=== PATIENT | male | born 1985 | race Two or more races ===

== ENCOUNTER 2024-07-21 14:35 | Inpatient (IN) | payer SELFPAY ==
[~2024-07-21] VITALS: Ht 175.3 cm; Wt 141.9 kg
--- NOTE | 2024-07-21 14:52 | ED.PDOC ---
History of Present Illness HPI Comments HPI: Poor Historian. 38-year-old male presents with a chief complaint of malaise, chills, and headache and dysuria. Patient was referred to the ER by Nya Germain to rule out Sepsis. Patient has a headache that is localized to his posterior region, non-radiating, and is worse when lying down. Patient mentions that on Friday and Friday he had a fever, but is afebrile upon arrival at 98.7F orally. 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 PMHx: Meningitis, Right Hearing Deficits, left-sided deficit PSHx: None Allergies: None Initial Vital Signs: BP: 143/84 HR: 98 Temp: 98.7F SpO2: 90% RR: 20 REVIEW OF SYSTEMS: CONSTITUTIONAL: Denies acute: fever, diaphoresis, HEAD: Denies acute: photophobia Eyes: Denies acute: Double vision, vision loss, eye pain, eye discharge. EARS: Denies acute: tinnitus, hearing loss, ear discharge, ear pain, THROAT: Denies acute: sore throat, swelling, difficulty swallowing , pain with swallowing, change in voice. NECK: Denies acute: neck pain, neck swelling, stiff neck. HEART: Denies acute : chest pain, palpitations, LUNGS: Denies acute: SOB, wheezing, cough, hemoptysis ABDOMEN: Denies acute: abdominal pain, Nausea, Vomiting, diarrhea, melena , hematemesis, hematochezia SKIN: Denies acute: rash, redness, lesions, itchiness. EXTREMITIES: Denies acute: calf pain, numbness, tingling, weakness, denies pain in extremity. Denies acute: Low back pain. Neuro: Denies acute: focal neurological deficit, motor or sensory focal neurological deficit, tremors, seizure like activity, confusion, dizziness, change in mental status, loss of bowel or bladder function, cauda equina like symptoms. : Denies acute: hematuria, flank pain, increase in urinary frequency. PSYCH: Denies acute: hallucination, suicidal ideation, homicidal ideation. PHYSICAL EXAM: General: no acute distress, awake and alert. Head: normocephalic, atraumatic. Neck: supple, trachea is midline, no swelling. Throat: Normal phonation. Eyes:, no erythema, no purulent discharge, no proptosis, no icterus. Heart: regular rate, regular rhythm, no significant murmur appreciated. Lungs: no apparent respiratory distress, Able to speak in full sentences. No wheezing, no rhonchi, no crackles. No stridors Clear to auscultation bilaterally. Abdomen: non tender to palpation, non distended, soft, no guarding, no rebound, + bowel sounds. Obese Neuro: Awake, Alert, oriented to name, self, situation, follows commands GCS=15. Speech is normal. Skin: no petechia, no purpura, no cyanosis, non-pale, not jaundice. Lower extremities: --no - Pitting edema no deformity, no focal swelling, no calf TTP. Makes eye contact. moves all four extremities. Face: no apparent facial droop. Ambulating in the ED independently. With a cane No nuchal rigidity, Kernig's sign, Brudzinski's sign, no meningeal signs. Time Seen by MD: 14:44 Reviewed Notes: Medications, Allergies Allergies: Coded Allergies: Diphenhydramine (Verified Allergy, Unknown, 07/21/24) Information Source: Patient Mode of Arrival: Ambulatory Severity: Moderate Timing: Days Duration: Since onset Prehospital treatment: None Past Medical History Past Medical History (Other): Meningitis Surgical History: Denies all surgeries Family History Family History: Reviewed,noncontributory to illness Social History Smoker: Non-Smoker Alcohol: Denies ETOH Use Drugs: Denies Drug Use Lives In: Home Was a procedure done? Was a procedure done?: No Differential Dx Considerations may include: Includes but not limited to thyroid disease, encephalopathy, electrolyte abnormality, sepsis, infection, intracranial pathology, drug adverse effects, arrhythmia, kidney insufficiency, ACS, CVA, malignancy, anemia X-Ray, Labs, Meds, VS Vital Signs Date Time Temp Pulse Resp B/P (MAP) Pulse Ox O2 Delivery O2 Flow Rate FiO2 07/21/24 20:00 98.1 63 16 122/67 (85) 98 98.1 07/21/24 16:15 99 07/21/24 15:40 99.0 98 18 142/81 (101) 95 99.0 07/21/24 15:40 98 18 95 Room Air* 0 21 07/21/24 14:45 98.7 90 28 143/84 (103) 98 Lab Test 11/6/24 20:27 07/21/24 19:54 07/21/24 15:43 07/21/24 15:02 Range/Units Urine Color Light-orange Yellow Urine Clarity Ex.turbid Clear Urine pH 8.0 5.0-9.0 Urine Specific [place] 1.027 1.001-1.035 Urine Protein 1+ H Negative Urine Ketones Negative Negative Urine Blood Trace H Negative /uL Urine Nitrite 2+ H Negative Urine Bilirubin Negative Negative Urine Urobilinogen 2 H Negative mg/dL Urine Leukocyte Esterase 3+ Negative /uL Urine RBC 22 0 - 3 /hpf Urine WBC 426 0 - 3 /hpf Urine WBC Clumps Present None Seen /hpf Urine Squamous Epithelial Cells None seen <5 /hpf Urine Triple Phosphate Crystals Few None Seen /hpf Urine Bacteria None seen None Seen /hpf Urine Mucus Few None Seen Urine Glucose Normal Normal mg/dL Urine Opiates Screen Neg NEGATIVE Urine Fentanyl Screen Neg NEGATIVE Urine Barbiturates Screen Neg NEGATIVE Urine Phencyclidine Screen Neg NEGATIVE Urine Amphetamines Screen Neg NEGATIVE Urine Benzodiazepines Screen Neg NEGATIVE Urine Cocaine Screen Neg NEGATIVE Urine Cannabinoids Screen Neg NEGATIVE Troponin I High Sensitivity 224 *H 243 *H </=54 ng/L Influenza Type A Antigen Negative Negative Influenza Type B Antigen Negative Negative SARS-CoV-2 Antigen (Rapid) Negative NEGATIVE White Blood Count 11.4 H 4.4-10.8 10^3/uL Red Blood Count 5.51 4.5-5.90 10^6/uL Hemoglobin 14.9 13.5-17.5 g/dL Hematocrit 46.0 41.0-53.0 % Mean Corpuscular Volume 83.4 80.0-100.0 fL Mean Corpuscular Hemoglobin 27.0 L 28.0-32.0 pg Mean Corpuscular Hemoglobin Concent 32.4 32.0-36.0 g/dL Red Cell Distribution Width 15.6 H 11.8-14.3 % Platelet Count 274 140-450 10^3/uL Mean Platelet Volume 9.2 6.9-10.8 fL Neutrophils (%) (Auto) 57.1 37.0-80.0 % Lymphocytes (%) (Auto) 24.5 10.0-50.0 % Monocytes (%) (Auto) 15.3 H 0.0-12.0 % Eosinophils (%) (Auto) 2.4 0.0-7.0 % Basophils (%) (Auto) 0.7 0.0-2.0 % Neutrophils # (Auto) 6.5 1.6-8.6 10 ^3/uL Lymphocytes # (Auto) 2.8 0.4-5.4 10 ^3/uL Monocytes # (Auto) 1.7 H 0-1.3 10 ^3/uL Eosinophils # (Auto) 0.3 0-0.8 10 ^3/uL Basophils # (Auto) 0.1 0-0.2 10 ^3/uL Nucleated Red Blood Cells 0.1 % Sodium Level 137 136-145 mmol/L Potassium Level 3.9 3.5-5.1 mmol/L Chloride Level 100 98-107 mmol/L Carbon Dioxide Level 33 H 20-31 mmol/L Anion Gap 4 L 5-15 Blood Urea Nitrogen 11 9-23 mg/dL Creatinine 0.73 0.700-1.30 mg/dL Glomerular Filtration Rate Calc 118 >90 mL/min BUN/Creatinine Ratio 15.1 10.0-20.0 Serum Glucose 115 H 74-106 mg/dL Lactic Acid Level 1.5 0.4-2.0 mmol/L Calcium Level 9.4 8.7-10.4 mg/dL Magnesium Level 2.6 1.6-2.6 mg/dL Total Bilirubin 0.3 0.2-1.0 mg/dL Aspartate Amino Transferase (AST) 79 H 13-40 U/L Alanine Aminotransferase (ALT) 75 H 7-40 U/L Alkaline Phosphatase 109 46-116 U/L Creatine Kinase 1045 H 46-171 U/L C-Reactive Protein High Sensitivity 10.02 H <1.0 mg/dL Total Protein 8.4 H 5.7-8.2 g/dL Albumin 4.1 3.2-4.8 g/dL Current Medications Medications (Trade) Dose Ordered Sig/Mainor Route Start Time Stop Time Status Last Admin Sodium Chloride 1,000 ml @ 1,000 mls/hr Q1H ONCE IV 07/21/24 15:00 07/21/24 15:59 DC 07/21/24 15:49 Ceftriaxone Sodium 50 ml @ 100 mls/hr ONCE ONCE IV 07/21/24 15:00 07/21/24 15:29 DC 07/21/24 15:49 Sodium Chloride 1,000 ml @ 1,000 mls/hr Q1H ONCE IV 07/21/24 16:00 07/21/24 16:59 DC 07/21/24 17:41 Aspirin 325 mg ONCE ONCE PO 07/21/24 19:30 07/21/24 20:26 DC 07/21/24 20:40 [place] [address] Ph: [phone] DIAGNOSTIC IMAGING Diagnostic Imaging Report : [id number] Signed PATIENT: ELIU BERRIOS ACCT: [id number] UNIT: [id number] : 1985 LOC: ER ROOM / BED: / AGE / SEX: 38 / M ADM STATUS: REG ER SERVICE 1503 ORDERING PHYSICIAN: SHAWN WIN DO PROCEDURE(s): CXRP - CHEST PORTABLE REASON: malaise chills ARAUJO ORDER NUMBER(s): [id number], ACCESSION NUMBER(s): [id number] XY CHEST PORTABLE, HISTORY: malaise chills ARAUJO COMPARISON: None None TECHNICAL DATA: 1 view of the chest was obtained. FINDINGS: Lines and tubes: None Cardiomediastinal silhouette: normal Pulmonary vasculature: normal Lung expansion: normal Lung airspace: normal Lung interstitium: normal Pleura: normal Pneumothorax: no Bones: Unremarkable Other: no IMPRESSION: No acute intrathoracic abnormality. ATED BY: EDGARDO FRAUSTO MD DICTATED DATE/TIME: 07/21/241526 SIGNED BY: EDGARDO FRAUSTO MD SIGNED DATE/TIME: 07/21/24 152 Time of 1ST Reevaluation: 15:14 Reevaluation 1ST: Unchanged Time of 2ND Reevaluation: 21:11 Reevaluation 2ND: Improved Patient Education/Counseling: Diagnosis, Treatment Family Education/Counseling: Diagnosis, Treatment Comments Patient presented with the above HPI.---fever/malaise/dysuria---workup was initiated. patient was found with the above mentioned diagnosis. Patient was given: Fluids, Rocephin, aspirin, Patient ED course and VS have been stabilized. Patient has been reassessed in the ED and remained in a stable condition. Pertinent incidental findings were discussed with the patient and/or family. Patient/family voices understanding and is agreeable with plan. Patient has been observed in the ED adequate length of time to insure improvement/stability. patient was admitted to the medicine team for further evaluation and treatment of their presentation. All the reports of any imaging studies that were ordered by myself were reviewed by myself. Departure 1 Departure Time of Disposition: 15:58 Impression: Primary Impression: Rhabdomyolysis Additional Impressions: Dysuria Elevated troponin UTI (urinary tract infection) Disposition: ADMITTED INPATIENT Admit to: Tele Condition: Guarded Discharged With: Self Critical Care Note Critical Care Time?: Yes (45 min-critical care time only) I personally scribed for SHAWN WIN DO ([email or web address]) on 07/21/24 at 14:52. Electronically submitted by Marty Chavez ([email or web address]). I personally scribed for SHAWN WIN DO ([email or web address]) on 07/21/24 at 15:21. Electronically submitted by Marty Chavez ([email or web address]). I personally scribed for SHAWN WIN DO ([email or web address]) on 07/21/24 at 18:00. Electronically submitted by Marty Chavez ([email or web address]). I personally scribed for SHAWN WIN DO ([email or web address]) on 07/21/24 at 20:32. Electronically submitted by Marty Chavez ([email or web address]). SHAWN WIN DO Jul 21, 2024 14:52
[2024-07-21 15:27] LABS: Basophils # (auto) 0.1 10 ^3/uL (0-0.2); Basophils % (auto) 0.7 % (0.0-2.0); Eosinophils # (auto) 0.3 10 ^3/uL (0-0.8); Eosinophils % (auto) 2.4 % (0.0-7.0); Hemoglobin 14.9 g/dL (13.5-17.5); Lymphocytes # (auto) 2.8 10 ^3/uL (0.4-5.4); Lymphocytes % (auto) 24.5 % (10.0-50.0); Mean Corpuscular Hgb Conc. 32.4 g/dL (32.0-36.0); Mean Corpuscular Volume 83.4 fL (80.0-100.0); Monocytes # (auto) 1.7 10 ^3/uL (0-1.3); Monocytes % (auto) 15.3 % (0.0-12.0); Neutrophils # (auto) 6.5 10 ^3/uL (1.6-8.6); Neutrophils % (auto) 57.1 % (37.0-80.0); Nucleated Red Blood Cells % 0.1 %; Platelet Count (auto) 274 10^3/uL (140-450); Red Blood Cells 5.51 10^6/uL (4.5-5.90); Red Cell Distribution Width 15.6 % (11.8-14.3); White Blood Cell 11.4 10^3/uL (4.4-10.8)
--- NOTE | 2024-07-21 15:30 | DVH ---
XY CHEST PORTABLE, HISTORY: malaise chills ARAUJO COMPARISON: None None TECHNICAL DATA: 1 view of the chest was obtained. FINDINGS: Lines and tubes: None Cardiomediastinal silhouette: normal Pulmonary vasculature: normal Lung expansion: normal Lung airspace: normal Lung interstitium: normal Pleura: normal Pneumothorax: no Bones: Unremarkable Other: no IMPRESSION: No acute intrathoracic abnormality.
[2024-07-21 15:40] VITALS: PULSE 98; RESP 18; O2SAT 95
[2024-07-21] MEDS: SODIUM CHLORIDE 0.9% 1,000 ML IV ONE ×2 (15:49→17:41)
[2024-07-21] MEDS: cefTRIAXone 1GM/50ML D5W 50 ML IV ONE (15:49)
[2024-07-21 15:53] LABS: Alanine Aminotransferase 75 U/L (7-40); Albumin 4.1 g/dL (3.2-4.8); Alkaline Phosphatase 109 U/L (46-116); Anion Gap 4 (5-15); Aspartate Aminotransferase 79 U/L (13-40); BUN/Creatinine Ratio 15.1 (10.0-20.0); Bilirubin, Total 0.3 mg/dL (0.2-1.0); Blood Urea Nitrogen 11 mg/dL (9-23); Calcium 9.4 mg/dL (8.7-10.4); Carbon Dioxide 33 mmol/L (20-31); Chloride 100 mmol/L (98-107); Creatine Kinase IFCC 1045 U/L (46-171); Glucose 115 mg/dL (74-106); Magnesium 2.6 mg/dL (1.6-2.6); Potassium 3.9 mmol/L (3.5-5.1); Sodium 137 mmol/L (136-145); Total Protein 8.4 g/dL (5.7-8.2)
[2024-07-21 16:02] LABS: CRP High Sensitivity 10.02 mg/dL (<1.0)
[2024-07-21 16:41] LABS: COVID19 ANTIGEN SOFIA FIA NEGATIVE (NEGATIVE); Rapid Influenza A Negative (Negative); Rapid Influenza B Negative (Negative)
[2024-07-21 20:29] LABS: Urine Bacteria None Seen /hpf (None Seen)
[2024-07-21] MEDS: ASPirin 325 MG TAB PO ONE (20:40)
[2024-07-21 20:54] LABS: Amphetamine Screen, Urine Neg (NEGATIVE); Barbiturate Scree,Urine Neg (NEGATIVE); Benzodiazephine Screen, Urine Neg (NEGATIVE); Cannabinoid Screen, Urine Neg (NEGATIVE); Cocaine Screen, Urine Neg (NEGATIVE); Opiate Scree,Urine Neg (NEGATIVE); Phencyclidine Screen, Urine Neg (NEGATIVE); Urine Blood TRACE /uL (Negative); Urine Clarity Ex.Turbid (Clear); Urine Color Light-Orange (Yellow); Urine Mucus FEW (None Seen); Urine Protein, UAD 1+ (Negative); Urine Specific Gravity 1.027 (1.001-1.035); Urine Urobilinogen 2 mg/dL (Negative); Urine WBC 426 /hpf (0 - 3); Urine WBC Clumps PRESENT /hpf (None Seen)
[2024-07-21 21:27] VITALS: PULSE 92; RESP 16; O2SAT 96
--- NOTE | 2024-07-21 21:54 | DVHHPRES ---
History of Present Illness Resident Creating Document: MARIANNE OLIVARES RESIDENT History of Present Illness This is a 38 years old male with past medical history of meningitis presented to the ED with chief complaint of malaise, chills, fever, neck pain and dysuria since Friday prior to this admission. Patient the patient is complaining of neck pain that is located to the posterior region, nonradiating and is worse when lying down. The patient mentioned that he had fever on Friday and Friday and the highest temperature was 100 associated with chills and high colored urine. He also mentioned he had history of meningitis in 2011 with residual right hearing deficit and left-sided weakness. The patient denies any history of working outside in hot weather, any vigorous exercise or any strenuous activity. The patient denies chest pain, shortness of breath, dizziness, diaphoresis, abdominal pain, nausea, vomiting or any change in bowel and bladder habit. Past Medical History Meningitis, Prediabetes Past Surgical History None. Family History Type 2 diabetes mellitus Smoke: No ALCOHOL: none Drugs: None Lives: with Family Review of Systems Constitutional: Yes: Fever, Chills, Sweats Eyes: No: Pain, Vision change, Conjunctivae inflammation, Eyelid inflammation, Other, Redness ENT: No: Ear pain, Ear discharge, Nose pain, Nose discharge, Nose congestion, Mouth pain, Mouth swelling, Throat pain, Throat swelling, Other Cardiovascular: No: Chest Pain, Palpitations, Orthopnea, Paroxysmal Noc. Dyspnea, Edema, Lt Headedness, Other Gastrointestinal: No: Nausea, Vomiting, Abdominal Pain, Diarrhea, Constipation, Melena, Hematochezia, Other Genitourinary: Dysuria; No Frequency, No Incontinence, No Hematuria, No Retention, No Other Musculoskeletal: neck pain; No: other, shoulder pain, arm pain, back pain, hand pain, leg pain, foot pain Skin: No: Rash, Lesions, Jaundice, Bruising, Other Neurological: No: Weakness, Numbness, Incoordination, Change in speech, Confusion, Seizures, Other Allergies: Coded Allergies: Diphenhydramine (Verified Allergy, Unknown, 07/21/24) Medications Current Medications Medications Dose Ordered Sig/Mainor Route Start Time Stop Time Status Last Admin Dose Admin Sodium Chloride 10 ml Q8HR IV 07/21/24 22:00 UNV Sodium Chloride 1,000 ml @ 100 mls/hr Q10H IV 07/21/24 22:00 UNV Acetaminophen 325 mg Q4HP PRN PO 07/21/24 22:00 UNV Acetaminophen/ Hydrocodone Bitart 1 tab Q4HP PRN PO 07/21/24 22:00 UNV Ondansetron HCl 4 mg Q4HP PRN IV 07/21/24 22:00 UNV Nitroglycerin 0.4 mg Q5MINP PRN SL 07/21/24 22:00 UNV Morphine Sulfate 2 mg Q30M PRN IV 07/21/24 22:00 UNV Exam Vital Signs Vital Signs Date Time Temp Pulse Resp B/P (MAP) Pulse Ox O2 Delivery O2 Flow Rate FiO2 07/21/24 21:27 92 16 96 Room Air* 0 21 07/21/24 20:00 98.1 122/67 (85) 98.1 Exam Physical examination: General Appearance: Alert, Oriented X3, Cooperative, No acute distress HEENT: Atraumatic, PERRLA, EOMI, Mucous membrane moist/pink Respiratory: Clear to auscultation, Normal air movement Cardiovascular: Regular rate, Normal S1, Normal S2, No murmurs, no chest wall tenderness Abdominal: Normal bowel sounds, Soft, No tenderness, No hepatospenomegaly, No masses Extremities: No clubbing, No cyanosis, No edema, Normal pulses, No tenderness/swelling Skin: No rashes, No breakdown, No significant lesion Neuro: Normal gait, Normal speech, Strength at 5/5 X4 ext, Normal tone, Sensation intact, grossly intact cranial nerves. Psych/Mental Status: Mental status NL, Mood NL Labs/Xrays Labs Test 07/21/24 21:12 07/21/24 20:27 07/21/24 15:43 07/21/24 15:02 Range/Units Urine Color Light-orange Yellow Urine Clarity Ex.turbid Clear Urine pH 8.0 5.0-9.0 Urine Specific [place] 1.027 1.001-1.035 Urine Protein 1+ H Negative Urine Ketones Negative Negative Urine Blood Trace H Negative /uL Urine Nitrite 2+ H Negative Urine Bilirubin Negative Negative Urine Urobilinogen 2 H Negative mg/dL Urine Leukocyte Esterase 3+ Negative /uL Urine RBC 22 0 - 3 /hpf Urine WBC 426 0 - 3 /hpf Urine WBC Clumps Present None Seen /hpf Urine Squamous Epithelial Cells None seen <5 /hpf Urine Triple Phosphate Crystals Few None Seen /hpf Urine Bacteria None seen None Seen /hpf Urine Mucus Few None Seen Urine Glucose Normal Normal mg/dL Urine Opiates Screen Neg NEGATIVE Urine Fentanyl Screen Neg NEGATIVE Urine Barbiturates Screen Neg NEGATIVE Urine Phencyclidine Screen Neg NEGATIVE Urine Amphetamines Screen Neg NEGATIVE Urine Benzodiazepines Screen Neg NEGATIVE Urine Cocaine Screen Neg NEGATIVE Urine Cannabinoids Screen Neg NEGATIVE Influenza Type A Antigen Negative Negative Influenza Type B Antigen Negative Negative SARS-CoV-2 Antigen (Rapid) Negative NEGATIVE White Blood Count 11.4 H 4.4-10.8 10^3/uL Red Blood Count 5.51 4.5-5.90 10^6/uL Hemoglobin 14.9 13.5-17.5 g/dL Hematocrit 46.0 41.0-53.0 % Mean Corpuscular Volume 83.4 80.0-100.0 fL Mean Corpuscular Hemoglobin 27.0 L 28.0-32.0 pg Mean Corpuscular Hemoglobin Concent 32.4 32.0-36.0 g/dL Red Cell Distribution Width 15.6 H 11.8-14.3 % Platelet Count 274 140-450 10^3/uL Mean Platelet Volume 9.2 6.9-10.8 fL Neutrophils (%) (Auto) 57.1 37.0-80.0 % Lymphocytes (%) (Auto) 24.5 10.0-50.0 % Monocytes (%) (Auto) 15.3 H 0.0-12.0 % Eosinophils (%) (Auto) 2.4 0.0-7.0 % Basophils (%) (Auto) 0.7 0.0-2.0 % Neutrophils # (Auto) 6.5 1.6-8.6 10 ^3/uL Lymphocytes # (Auto) 2.8 0.4-5.4 10 ^3/uL Monocytes # (Auto) 1.7 H 0-1.3 10 ^3/uL Eosinophils # (Auto) 0.3 0-0.8 10 ^3/uL Basophils # (Auto) 0.1 0-0.2 10 ^3/uL Nucleated Red Blood Cells 0.1 % Sodium Level 137 136-145 mmol/L Potassium Level 3.9 3.5-5.1 mmol/L Chloride Level 100 98-107 mmol/L Carbon Dioxide Level 33 H 20-31 mmol/L Anion Gap 4 L 5-15 Blood Urea Nitrogen 11 9-23 mg/dL Creatinine 0.73 0.700-1.30 mg/dL Glomerular Filtration Rate Calc 118 >90 mL/min BUN/Creatinine Ratio 15.1 10.0-20.0 Serum Glucose 115 H 74-106 mg/dL Lactic Acid Level 1.5 0.4-2.0 mmol/L Calcium Level 9.4 8.7-10.4 mg/dL Magnesium Level 2.6 1.6-2.6 mg/dL Total Bilirubin 0.3 0.2-1.0 mg/dL Aspartate Amino Transferase (AST) 79 H 13-40 U/L Alanine Aminotransferase (ALT) 75 H 7-40 U/L Alkaline Phosphatase 109 46-116 U/L Creatine Kinase 1045 H 46-171 U/L C-Reactive Protein High Sensitivity 10.02 H <1.0 mg/dL Total Protein 8.4 H 5.7-8.2 g/dL Albumin 4.1 3.2-4.8 g/dL Assessment/Plan Assessment/Plan Assessment and plan: # Acute rhabdomyolysis without any provocative factor - CPK is 1045 - 1L normal saline IV bolus followed by IV normal saline at 100 mL/hour - Monitor CPK level # Acute cystitis - U/A is consistent with UTI - Ordered urine bacterial culture - IV ceftriaxone 1 g daily # NSTEMI type 2 secondary to above - Troponin trends are 243>224>205 - Ordered echo - Consulted cardiology # Transaminitis without hyperbilirubinemia - Monitor CMP # Prediabetes - Counseled patient regarding weight loss, lifestyle modification and physical exercise Goal of care discussed with the patient for more than 23 minutes full code Plan of treatment discussed with Dr. Meyer Plan discussed with: Patient, Other My Orders Orders - MARIANNE OLIVARES RESIDENT Procedure Category Date Status Time Admit ADMIT 07/21/24 Transmitted 21:48 Code Status CODE 07/21/24 Transmitted 21:48 Sodium Chloride Lock PHA 07/21/24 Logged (Saline Lock Ns) 22:00 Sodium Chloride 0.9% PHA 07/21/24 Logged 22:00 Oxygen Per Hour RT 07/21/24 Transmitted 21:48 Acetaminophen Tablet PHA 07/21/24 Logged (Tylenol Tablet) 22:00 Hydrocodone-Acet PHA 07/21/24 Logged 5/325mg Tab ([place] 22:00 Ondansetron Hcl PHA 07/21/24 Logged (Zofran) 22:00 Complete Blood Count LAB 07/22/24 Verified 04:00 Comprehensive LAB 07/22/24 Verified Metabolic Panel 04:00 Nitroglycerin PHA 07/21/24 Logged Sublingual (Ntrostat 22:00 Morphine Sulfate PHA 07/21/24 Logged Injection 22:00 Oxygen By Nasal RT 07/21/24 Transmitted Cannula 21:48 Stat Ekg For Chest [facility] 07/21/24 In Process Pain 21:48 Notify Of Changes [facility] 07/21/24 In Process From Base 21:48 Fixed Wing Aircraft [employer] For [facility] 07/21/24 In Process 24 Hours 21:48 Emergency Dysrhythmia [facility] 07/21/24 In Process Protocol 21:48 Rhythm Strips Once [facility] 07/21/24 In Process Every Shift 21:48 MARIANNE OLIVARES RESIDENT Jul 21, 2024 21:54
[2024-07-21] MEDS ORDERED: NITROGLYCERIN 0.4 MG SL TAB SL PRN (22:00)
[2024-07-21] MEDS ORDERED: MORPHINE SULFATE INJ 2 MG/ml SYRG IV PRN (22:00)
[2024-07-21] MEDS ORDERED: ONDANSETRON HCL 4 MG/2 ML VIAL IV PRN (22:00)
[2024-07-21] MEDS ORDERED: ACETAMINOPHEN 325 MG TAB PO PRN (22:00)
[2024-07-21] MEDS ORDERED: HYDROcodone-ACET 5/325MG TAB PO PRN (22:00)
[2024-07-21] MEDS: SODIUM CHLOR 0.9% PF (SALINE LOCK) 10ML VIAL/SYR IV SCH (22:42)
[2024-07-21] MEDS: SODIUM CHLORIDE 0.9% 1,000 ML IV SCH (22:42)
[2024-07-22] VITALS (8 sets, daily range): BP systolic 116–134; BP diastolic 68–75; PULSE 74–89; RESP 17–22; TEMP 97.3–98.4; O2SAT 90–99
[2024-07-22] MEDS: cefTRIAXone 1GM/50ML D5W 50 ML IV ONE (00:04)
[2024-07-22 05:53] LABS: Basophils # (auto) 0.1 10 ^3/uL (0-0.2); Basophils % (auto) 0.7 % (0.0-2.0); Eosinophils # (auto) 0.4 10 ^3/uL (0-0.8); Eosinophils % (auto) 4.2 % (0.0-7.0); Hematocrit 41.1 % (41.0-53.0); Hemoglobin 13.1 g/dL (13.5-17.5); Lymphocytes # (auto) 2.5 10 ^3/uL (0.4-5.4); Lymphocytes % (auto) 23.8 % (10.0-50.0); Mean Corpuscular Hemoglobin 26.6 pg (28.0-32.0); Mean Corpuscular Hgb Conc. 31.8 g/dL (32.0-36.0); Mean Corpuscular Volume 83.8 fL (80.0-100.0); Monocytes # (auto) 1.4 10 ^3/uL (0-1.3); Monocytes % (auto) 13.2 % (0.0-12.0); Neutrophils # (auto) 6.1 10 ^3/uL (1.6-8.6); Neutrophils % (auto) 58.1 % (37.0-80.0); Nucleated Red Blood Cells % 0.1 %; Platelet Count (auto) 256 10^3/uL (140-450); Red Blood Cells 4.91 10^6/uL (4.5-5.90); Red Cell Distribution Width 15.3 % (11.8-14.3); White Blood Cell 10.4 10^3/uL (4.4-10.8)
[2024-07-22 06:08] LABS: Alanine Aminotransferase 57 U/L (7-40); Albumin 3.7 g/dL (3.2-4.8); Alkaline Phosphatase 85 U/L (46-116); Anion Gap 5 (5-15); Aspartate Aminotransferase 59 U/L (13-40); BUN/Creatinine Ratio 15.1 (10.0-20.0); Bilirubin, Total 0.3 mg/dL (0.2-1.0); Blood Urea Nitrogen 8 mg/dL (9-23); Calcium 8.3 mg/dL (8.7-10.4); Carbon Dioxide 29 mmol/L (20-31); Chloride 106 mmol/L (98-107); Creatine Kinase IFCC 781 U/L (46-171); Glucose 121 mg/dL (74-106); Potassium 3.7 mmol/L (3.5-5.1); Sodium 140 mmol/L (136-145)
[2024-07-22 06:09] LABS: Total Protein 7.1 g/dL (5.7-8.2)
[2024-07-22] MEDS: cefTRIAXone 1GM/50ML D5W 50 ML IV SCH (08:43)
[2024-07-22 09:07] LABS: Hepatitis B Core Total AB Negative (Negative)
--- NOTE | 2024-07-22 09:38 | DVHPNRES ---
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 As per patient has been having dysuria, urgency, frequency, sometime hesitancy during micturition started on Friday. Patient also reported fever initially more than 100 F at home and it continued on Friday through the following day. Patient also complained of pain in the neck and shoulder and upper back, sore in nature, Tylenol. Patient also had history of fall at work 2 weeks before where he was laying on the floor for 2 minutes. Patient reported that he had meningitis in 2011. This was complicated by loss of hearing in the right ear and right-sided weakness. Patient denied any sick contact, chest pain, shortness of breath, cough, constipation or diarrhea, acute joint pain or swelling, any change in vision. Lab workup revealed leukocytosis 11.4, elevated creatinine kinase 1045> 781, troponin I 243> 224> 205, transaminitis AST 59, ALT 57, vitamin-D deficiency 70.5, 0.3. Patient's serum creatinine, GFR, TSH within normal limit. Was negative, patient is negative for influenza type A and B and COVID test. Urinalysis revealed nitrites 2+, leukocyte esterase 3+, WBC 4 2D 6, CBC 22. CXR cardiomegaly, there is no abdominal noted. PMH-meningitis with residual hearing loss and right-sided weakness, diabetes mellitus type 2 c PSH-denies any surgery Allergy- diphenhydramine Personal History/ Social History- 68, denies alcohol//drug abuse Patient was seen today at the bedside. Patient reports mild sore on the upper back back Cardiovascular- deny acute chest pain or shortness of breath or cough or palpitation Respiratory- denies cough or short of breath or wheezing Gastrointestinal- denies any rectal bleeding, nausea or vomiting Musculoskeletal-denies acute joint swelling or tenderness or redness Neurological- denies acute dysarthria, dysphagia, change in vision Psychiatry- denies depression or SI or HI Skin- denies acute rash or purpura Patient is seen today for clinical evaluation. Labs and chart reviewed. Patient on ceftriaxone 1 g IV daily for acute UTI. Patient is also on IV normal saline per rhabdomyolysis likely following the fall at work 2 weeks before. Patient reported making enough urine. Patient reported seeing any dark urine or blood in the urine. Patient's elevated troponin I likely due to sepsis. Preliminary blood culture showed no growth. Objective vital signs Vital Sign Date Time Temp Pulse Resp B/P (MAP) Pulse Ox O2 Delivery O2 Flow Rate FiO2 07/22/24 09:04 98.0 74 17 116/71 (86) 91 98.0 07/22/24 03:13 Room Air* 0 21 Total Intake and Output 07/21/24 07/21/24 07/22/24 15:00 23:00 07:00 Intake Total 150 ml Balance 150 ml medications Current Medications Medications Dose Ordered Sig/Mainor Route Start Time Stop Time Status Last Admin Dose Admin Sodium Chloride 10 ml Q8HR IV 07/21/24 22:00 07/22/24 06:00 10 ML Sodium Chloride 1,000 ml @ 100 mls/hr Q10H IV 07/21/24 22:00 07/22/24 08:43 100 MLS/HR Acetaminophen 325 mg Q4HP PRN PO 07/21/24 22:00 Acetaminophen/ Hydrocodone Bitart 1 tab Q4HP PRN PO 07/21/24 22:00 Ondansetron HCl 4 mg Q4HP PRN IV 07/21/24 22:00 Nitroglycerin 0.4 mg Q5MINP PRN SL 07/21/24 22:00 Morphine Sulfate 2 mg Q30M PRN IV 07/21/24 22:00 Ceftriaxone Sodium 50 ml @ 100 mls/hr DAILY@09 IV 07/22/24 09:00 07/22/24 08:43 100 MLS/HR Examination General examination- obese, awake, alert, oriented, HEENT- PEERLA,-decreased hearing in the right ear Cardiovascular- S1-S2 audible, rate and rhythm regular, no murmur Respiratory- CTAB, no wheeze or rhonchi Gastrointestinal-nontender, bowel sound+. Nondistended Musculoskeletal-no acute joint swelling or tenderness or redness# Lower extremity- no leg edema Juydfceuklgq-xshiz-wgyjj weakness, decreased hearing in the right ear Psychiatry- denies depression or SI or HI Skin- no acute rash or purpura laboratory and microbiology Laboratory Tests 07/22/24 04:43 Test 07/22/24 04:43 Range/Units Serum Glucose 121 H 74-106 mg/dL Problem List/Assessment/Plan Problem List/Assessment/Plan # sepsis likely due to UTI -patient with history of fever, leukocytosis, WBC 11.4 -nitrite 2+, leukocyte esterase 3+, WBC 426, RBC 20 to -pending urine CS -continue IV ceftriaxone 1 g IV daily -initial culture revealed no growth -continue IV normal saline 125 mL/hour # UTI -nitrite 2+, leukocyte esterase 3+, WBC 426, RBC 20 to -pending urine CS -initial culture revealed no growth -continue ceftriaxone 1 g IV daily -continue IV fluid as prescribed Monitor urine output # STEMI type 2 likely due to sepsis -EKG with a normal limit -troponin I 243> 224> 205 -patient is seen by Cardiology, recommendation reviewed and appreciated -pending echo 2D # acute rhabdomyolysis likely due to fall that happened 2 weeks before at work no MARLA -serum creatinine 0.53, GFR 130 -continue IV normal saline 125 mL/hour -monitor urine output -monitor CMP # vitamin-D deficiency -vitamin-D 17.5 -continue Ergo-cholecalciferol [id number] per week # status post falls complicated by rhabdomyolysis -continue IV fluid as prescribed -monitor urine output - # diabetes mellitus type 2 -HGB A1c 6.7 -low-carbohydrate diet # history of meningitis in 2011 with complication -no acute episode #post meningitis right-sided hearing does and right-sided weakness -monitor clinically # morbid obesity, BMI 44.9 -patient is counseled about weight reduction, healthy diet, physical activity Goals of care/advance care planning; FULL CODE; discussed with the patient PUD prophylaxis: DVT prophylaxis: Patient ambulating Plan discussed with Dr. Salas,,, nursing staff, patient Total time spent on patient evaluation, chart review, assessment and plan, discussion discussion >20 minutes Plan discussed with: Patient Plan discussed with: Patient, Other (RN) Date of Service: Jul 22, 2024 Billing Provider: KAYLIE SALAS MD Common Visit Codes: [id number] INP/OBS CARE(HIGH) Secondary Visit Codes: [id number] CARE PLAN 30 MINUTES EVELIA PEÑA RESIDENT Jul 22, 2024 09:38 KAYLIE SALAS MD Jul 22, 2024 21:36
--- NOTE | 2024-07-22 10:52 | DVHINCON2 ---
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 Patient was examined at bedside, he reports an improvement in his neck pain but still reports having warm sensation all over the body. Brudzinski and Kernig signs were negative. Patient denies any other complaint. EKG was unremarkable Troponin levels were negative Echocardiogram is pending Social history: Unremarkable Family history: Type 2 diabetes Past Medical History Morbid obesity Type 2 diabetes History of meningitis Family History: Diabetes mellitus G8 MOTHER Hypertension G8 MOTHER Allergies: Coded Allergies: Diphenhydramine (Verified Allergy, Unknown, 07/21/24) Home Meds No Active Prescriptions or Reported Meds Current Medications Current Medications Medications (Trade) Dose Ordered Sig/Mainor Route PRN Reason Start Time Stop Time Status Last Admin Sodium Chloride (Saline Lock Ns) 10 ml Q8HR IV 07/21/24 22:00 07/22/24 06:00 Sodium Chloride 1,000 ml @ 100 mls/hr Q10H IV 07/21/24 22:00 07/22/24 09:37 DC 07/22/24 08:43 Acetaminophen (Tylenol Tablet) 325 mg Q4HP PRN PO MILD PAIN (1-3 PAIN SCALE) 07/21/24 22:00 Acetaminophen/ Hydrocodone Bitart ([place] 5/325MG Tab) 1 tab Q4HP PRN PO MODERATE PAIN (4-6 PAIN SCALE) 07/21/24 22:00 Ondansetron HCl (Zofran) 4 mg Q4HP PRN IV NAUSEA / VOMITING 07/21/24 22:00 Nitroglycerin (Ntrostat Sublingual) 0.4 mg Q5MINP PRN SL FOR CHEST PAIN 07/21/24 22:00 Morphine Sulfate 2 mg Q30M PRN IV FOR CHEST PAIN 07/21/24 22:00 Ceftriaxone Sodium 50 ml @ 100 mls/hr DAILY@09 IV 07/22/24 09:00 07/22/24 08:43 Sodium Chloride 1,000 ml @ 125 mls/hr Q8H IV 07/22/24 09:45 Ergocalciferol (Vitamin D 50,000 Unit) 50,000 unit Q7D PO 07/22/24 09:45 Review of Systems Constitutional: Yes: Chills No: Sweats, Weakness, Malaise, Other Eyes: No: Pain, Vision change, Conjunctivae inflammation, Eyelid inflammation, Other, Redness ENT: No: Ear pain, Ear discharge, Nose pain, Nose discharge, Nose congestion, Mouth pain, Mouth swelling, Throat pain, Throat swelling, Other Respiratory: No Wheezing, Hemoptysis, Pleuritic Pain, Sputum, Wheezing, Other Cardiovascular: No: Chest Pain, Palpitations, Orthopnea, Paroxysmal Noc. Dyspnea, Edema, Lt Headedness, Other Gastrointestinal: No: Nausea, Vomiting, Abdominal Pain, Diarrhea, Constipation, Melena, Hematochezia, Other Musculoskeletal: No: other, neck pain, shoulder pain, arm pain, back pain, hand pain, leg pain, foot pain Neurological:; No: Weakness, Numbness, Incoordination, Change in speech, Confusion, Seizures Vital Signs Vital Signs Date Time Temp Pulse Resp B/P (MAP) Pulse Ox O2 Delivery O2 Flow Rate FiO2 07/22/24 09:04 98.0 74 17 116/71 (86) 91 98.0 07/22/24 08:00 Room Air* 0 21 Physical Exam Examination General Appearance: Alert, Oriented X3, Cooperative, No acute distress HEENT: EOMI Respiratory: Clear to auscultation, Normal air movement Cardiovascular: Regular rate, Normal S1, Normal S2 Abdominal: Normal bowel sounds Extremities: No cyanosis, No edema, Normal pulses, No tenderness/swelling Skin: No rashes, No breakdown Neuro: walk using a cane, Normal speech, Strength at 5/5 X4 ext, Normal tone, Sensation intact, Cranial nerves 3-12 NL, Reflexes 2+ Psych/Mental Status: Mental status NL, Mood NL Labs/Diagnostic Data Labs Test 07/22/24 04:43 07/21/24 21:12 07/21/24 20:27 07/21/24 15:43 Range/Units White Blood Count 10.4 4.4-10.8 10^3/uL Red Blood Count 4.91 4.5-5.90 10^6/uL Hemoglobin 13.1 L 13.5-17.5 g/dL Hematocrit 41.1 # 41.0-53.0 % Mean Corpuscular Volume 83.8 80.0-100.0 fL Mean Corpuscular Hemoglobin 26.6 L 28.0-32.0 pg Mean Corpuscular Hemoglobin Concent 31.8 L 32.0-36.0 g/dL Red Cell Distribution Width 15.3 H 11.8-14.3 % Platelet Count 256 140-450 10^3/uL Mean Platelet Volume 9.1 6.9-10.8 fL Neutrophils (%) (Auto) 58.1 37.0-80.0 % Lymphocytes (%) (Auto) 23.8 10.0-50.0 % Monocytes (%) (Auto) 13.2 H 0.0-12.0 % Eosinophils (%) (Auto) 4.2 0.0-7.0 % Basophils (%) (Auto) 0.7 0.0-2.0 % Neutrophils # (Auto) 6.1 1.6-8.6 10 ^3/uL Lymphocytes # (Auto) 2.5 0.4-5.4 10 ^3/uL Monocytes # (Auto) 1.4 H 0-1.3 10 ^3/uL Eosinophils # (Auto) 0.4 0-0.8 10 ^3/uL Basophils # (Auto) 0.1 0-0.2 10 ^3/uL Nucleated Red Blood Cells 0.1 % Sodium Level 140 136-145 mmol/L Potassium Level 3.7 3.5-5.1 mmol/L Chloride Level 106 98-107 mmol/L Carbon Dioxide Level 29 20-31 mmol/L Anion Gap 5 5-15 Blood Urea Nitrogen 8 L 9-23 mg/dL Creatinine 0.53 L 0.700-1.30 mg/dL Glomerular Filtration Rate Calc 130 >90 mL/min BUN/Creatinine Ratio 15.1 10.0-20.0 Serum Glucose 121 H 74-106 mg/dL Hemoglobin A1c 6.7 H <5.7 % A1C Calcium Level 8.3 L 8.7-10.4 mg/dL Total Bilirubin 0.3 0.2-1.0 mg/dL Aspartate Amino Transferase (AST) 59 H 13-40 U/L Alanine Aminotransferase (ALT) 57 H 7-40 U/L Alkaline Phosphatase 85 46-116 U/L Creatine Kinase 781 H 46-171 U/L Total Protein 7.1 5.7-8.2 g/dL Albumin 3.7 3.2-4.8 g/dL Vitamin B12 Level 528 211-911 pg/mL Vitamin D 25-Hydroxy 17.5 L 30.0-100 ng/mL Thyroid Stimulating Hormone (TSH) 1.94 0.55-4.78 uIU/mL Troponin I High Sensitivity 205 *H </=54 ng/L Urine Color Light-orange Yellow Urine Clarity Ex.turbid Clear Urine pH 8.0 5.0-9.0 Urine Specific [place] 1.027 1.001-1.035 Urine Protein 1+ H Negative Urine Ketones Negative Negative Urine Blood Trace H Negative /uL Urine Nitrite 2+ H Negative Urine Bilirubin Negative Negative Urine Urobilinogen 2 H Negative mg/dL Urine Leukocyte Esterase 3+ Negative /uL Urine RBC 22 0 - 3 /hpf Urine WBC 426 0 - 3 /hpf Urine WBC Clumps Present None Seen /hpf Urine Squamous Epithelial Cells None seen <5 /hpf Urine Triple Phosphate Crystals Few None Seen /hpf Urine Bacteria None seen None Seen /hpf Urine Mucus Few None Seen Urine Glucose Normal Normal mg/dL Urine Opiates Screen Neg NEGATIVE Urine Fentanyl Screen Neg NEGATIVE Urine Barbiturates Screen Neg NEGATIVE Urine Phencyclidine Screen Neg NEGATIVE Urine Amphetamines Screen Neg NEGATIVE Urine Benzodiazepines Screen Neg NEGATIVE Urine Cocaine Screen Neg NEGATIVE Urine Cannabinoids Screen Neg NEGATIVE Influenza Type A Antigen Negative Negative Influenza Type B Antigen Negative Negative SARS-CoV-2 Antigen (Rapid) Negative NEGATIVE Test 07/21/24 15:02 Range/Units Lactic Acid Level 1.5 0.4-2.0 mmol/L Magnesium Level 2.6 1.6-2.6 mg/dL C-Reactive Protein High Sensitivity 10.02 H <1.0 mg/dL Assessment NSTEMI type 2 secondary to acute cystitis Acute rhabdomyolysis likely due to SIRS due to acute cystitis Type 2 diabetes hemoglobin A1c 6.7 Morbid obesity BMI 44.9 History of meningitis(2011) with residual deficits, right leg weakness Plan/Recommendation Conservative management Treat underlying condition Echocardiogram still pending , follow-up on results EKG was unremarkable Thank you for letting us participate in this case Case discussed with Dr. Peck Critical care, time spent: 47 minutes Plan discussed with: Patient Date of Service: Jul 22, 2024 Billing Provider: CHAVO PECK MD Cardiology Common Codes: [id number] INP/OBS CARE (High) FAB BRADEN RESIDENT Jul 22, 2024 10:52
[2024-07-22] MEDS: ERGOCALCIFEROL 50,000 UNIT(1.25MG) CAP PO SCH (11:11)
[2024-07-22] MEDS: SODIUM CHLORIDE 0.9% 1,000 ML IV SCH (11:12)
[2024-07-22 11:33] LABS: Hepatitis A Total Antibody Positive (Negative); Hepatitis B Surface Antibody Negative (Negative); Hepatitis B Surface Antigen Negative (Negative); Hepatitis C Antibody Negative (Negative)
--- NOTE | 2024-07-22 18:40 | DVHSR ---
APPROVED REPORT EXAM: Two-dimensional and M-mode echocardiogram with Doppler and color Doppler. Blood Pressure: 123/75 mmHg INDICATION NSTEMI RISK FACTORS Height: 5'9", Weight: 304 DIMENSIONS LVDd5.0 (3.8-5.7cm)LA (2D)4.4 (1.9-4.0cm)Aortic Root3.2 (2.0-3.7cm) LVDs3.1 (2.5-4.0cm)LA (MM) (1.9-4.0cm)Aortic Cusp Exc2.7 (1.5-2.0cm) EF (%) 68.0 (55-70%)Rt. Atrium4.4 (1.9-4.0cm)Asc. Aorta3.3 cm IVSd1.1 (0.7-1.1cm)RV (D) (1.8-2.4cm) PWd1.2 (0.7-1.1cm) Mitral Valve MitralMitral Stenosis E wave1.16m/sMV Mean GR.mmHg A wave1.06m/sMV Peak GR.mmHg E/A ratio1.12D MVAcm2 DECEL [id number] 1/2 Timems Aortic Valve Aortic ValveAortic Stenosis V11.35m/Lisy Mean GR.5mmHg V21.53m/Lisy Peak GR.9mmHg LVOT Diameter2.6 (1.8-2.4cm)Doppler AVA4.68cm2 Pulmonic Valve V21.21m/s Conclusion Normal left ventricular size and dimension. Normal left ventricular systolic function. Normal right ventricular size and dimension. Normal right ventricular systolic function. Normal biatrial size and dimension. Normal aortic valve structure and function. Normal mitral valve structure and function. Normal tricuspid valve structure and function. The pulmonary valve is grossly normal. No pericardial effusion.
[2024-07-23] VITALS (8 sets, daily range): BP systolic 126–148; BP diastolic 70–91; PULSE 65–83; RESP 18–23; TEMP 97.6–98.6; O2SAT 91–97
[2024-07-23 05:41] LABS: Basophils # (auto) 0.1 10 ^3/uL (0-0.2); Basophils % (auto) 0.7 % (0.0-2.0); Eosinophils # (auto) 0.5 10 ^3/uL (0-0.8); Eosinophils % (auto) 4.3 % (0.0-7.0); Hematocrit 40.7 % (41.0-53.0); Hemoglobin 13.1 g/dL (13.5-17.5); Lymphocytes # (auto) 2.9 10 ^3/uL (0.4-5.4); Lymphocytes % (auto) 24.4 % (10.0-50.0); Mean Corpuscular Hgb Conc. 32.1 g/dL (32.0-36.0); Monocytes # (auto) 1.2 10 ^3/uL (0-1.3); Monocytes % (auto) 9.9 % (0.0-12.0); Neutrophils # (auto) 7.3 10 ^3/uL (1.6-8.6); Neutrophils % (auto) 60.7 % (37.0-80.0); Platelet Count (auto) 266 10^3/uL (140-450); Red Blood Cells 4.84 10^6/uL (4.5-5.90); Red Cell Distribution Width 15.7 % (11.8-14.3)
[2024-07-23 06:45] LABS: Chloride 106 mmol/L (98-107); Potassium 3.9 mmol/L (3.5-5.1); Sodium 140 mmol/L (136-145)
[2024-07-23 06:46] LABS: Anion Gap 6 (5-15); Carbon Dioxide 28 mmol/L (20-31)
[2024-07-23 06:47] LABS: Calcium 8.8 mg/dL (8.7-10.4)
[2024-07-23 06:51] LABS: Glucose 116 mg/dL (74-106)
[2024-07-23 06:52] LABS: BUN/Creatinine Ratio 10.5 (10.0-20.0); Blood Urea Nitrogen 6 mg/dL (9-23); Creatine Kinase IFCC 549 U/L (46-171)
--- NOTE | 2024-07-23 08:46 | DVHPN2 ---
Consult Progress Note Date Seen: Jul 23, 2024 Subjective Patient reports: No new complaints Review of Systems: HEENT:Normal, CVS:Normal, RESPIRATORY:Normal, GI:Normal, :Normal, MSK:Normal, NEURO:Abnormal Objective vital signs Vital Sign Date Time Temp Pulse Resp B/P (MAP) Pulse Ox O2 Delivery O2 Flow Rate FiO2 07/23/24 08:23 97.6 80 22 136/89 (105) 92 97.6 07/23/24 08:00 Room Air* 0 21 Total Intake and Output 07/22/24 07/22/24 07/23/24 15:00 23:00 07:00 Intake Total 50 ml 3310 ml 1200 ml Output Total 1700 ml Balance 50 ml 1610 ml 1200 ml medications Current Medications Medications Dose Ordered Sig/Mainor Route Start Time Stop Time Status Last Admin Dose Admin Sodium Chloride 10 ml Q8HR IV 07/21/24 22:00 07/23/24 06:13 10 ML Acetaminophen 325 mg Q4HP PRN PO 07/21/24 22:00 Acetaminophen/ Hydrocodone Bitart 1 tab Q4HP PRN PO 07/21/24 22:00 Ondansetron HCl 4 mg Q4HP PRN IV 07/21/24 22:00 Nitroglycerin 0.4 mg Q5MINP PRN SL 07/21/24 22:00 Morphine Sulfate 2 mg Q30M PRN IV 07/21/24 22:00 Ceftriaxone Sodium 50 ml @ 100 mls/hr DAILY@09 IV 07/22/24 09:00 07/22/24 08:43 100 MLS/HR Sodium Chloride 1,000 ml @ 125 mls/hr Q8H IV 07/22/24 09:45 07/23/24 01:47 125 MLS/HR Ergocalciferol 50,000 unit Q7D PO 07/22/24 09:45 07/22/24 11:11 50,000 UNIT Examination: GENERAL:Normal, HEENT:Normal, NECK:Normal, LUNGS:Normal, CVS:Normal, ABDOMEN:Normal, MSK:Normal, SKIN:Normal, NEURO:Normal, :Normal laboratory and microbiology Laboratory Tests 07/23/24 04:46 Test 07/23/24 04:46 Range/Units Serum Glucose 116 H 74-106 mg/dL Problem List/Assessment/Plan Problem List/Assessment/Plan Assessment NSTEMI type 2 secondary to acute cystitis Acute rhabdomyolysis likely due to SIRS due to acute cystitis Type 2 diabetes hemoglobin A1c 6.7 Morbid obesity BMI 44.9 History of meningitis(2011) with residual deficits, right leg weakness Plan/Recommendation Conservative management Treat underlying condition Echocardiogram result showed an EF 68% EKG was unremarkable Thank you for letting us participate in this case , there is no further workup indicated at this time, we are signing off. Case discussed with Dr. Peck Critical care, time spent: 47 minutes Plan discussed with: Patient Date of Service: Jul 23, 2024 Billing Provider: CHAVO PECK MD Cardiology Common Codes: [id number] HOSP CARE([facility] FAB BRADEN RESIDENT Jul 23, 2024 08:46
--- NOTE | 2024-07-23 15:46 | DVHPNRES ---
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 As per patient has been having dysuria, urgency, frequency, sometime hesitancy during micturition started on Friday. Patient also reported fever initially more than 100 F at home and it continued on Friday through the following day. Patient also complained of pain in the neck and shoulder and upper back, sore in nature, Tylenol. Patient also had history of fall at work 2 weeks before where he was laying on the floor for 2 minutes. Patient reported that he had meningitis in 2011. This was complicated by loss of hearing in the right ear and right-sided weakness. Patient denied any sick contact, chest pain, shortness of breath, cough, constipation or diarrhea, acute joint pain or swelling, any change in vision. Lab workup revealed leukocytosis 11.4, elevated creatinine kinase 1045> 781, troponin I 243> 224> 205, transaminitis AST 59, ALT 57, vitamin-D deficiency 70.5, 0.3. Patient's serum creatinine, GFR, TSH within normal limit. Was negative, patient is negative for influenza type A and B and COVID test. Urinalysis revealed nitrites 2+, leukocyte esterase 3+, WBC 4 2D 6, CBC 22. CXR cardiomegaly, there is no abdominal noted. Echo 2D LVEF 68%. PMH-meningitis with residual hearing loss and right-sided weakness, diabetes mellitus type 2 c PSH-denies any surgery Allergy- diphenhydramine Personal History/ Social History- 68, denies alcohol//drug abuse Patient was seen today at the bedside. Patient reports mild sore on the upper back back Cardiovascular- deny acute chest pain or shortness of breath or cough or palpitation Respiratory- denies cough or short of breath or wheezing Gastrointestinal- denies any rectal bleeding, nausea or vomiting Musculoskeletal-denies acute joint swelling or tenderness or redness Neurological- denies acute dysarthria, dysphagia, change in vision Psychiatry- denies depression or SI or HI Skin- denies acute rash or purpura Patient is seen today for clinical evaluation. Labs and chart reviewed. Preliminary blood culture and uterine culture is negative for any growth. No fever noted overnight. Patient's vitals are stable. Patient still has leukocytosis WBC 20082. Plan is to continue current management. Creatinine kinase is trending down. Echo 2D revealed LVEF 68%. Objective vital signs Vital Sign Date Time Temp Pulse Resp B/P (MAP) Pulse Ox O2 Delivery O2 Flow Rate FiO2 07/23/24 12:50 98.4 65 23 147/91 (109) 91 98.4 07/23/24 08:00 Room Air* 0 21 Total Intake and Output 07/22/24 07/22/24 07/23/24 15:00 23:00 07:00 Intake Total 50 ml 3310 ml 1200 ml Output Total 1700 ml Balance 50 ml 1610 ml 1200 ml medications Current Medications Medications Dose Ordered Sig/Mainor Route Start Time Stop Time Status Last Admin Dose Admin Sodium Chloride 10 ml Q8HR IV 07/21/24 22:00 07/23/24 13:51 10 ML Acetaminophen 325 mg Q4HP PRN PO 07/21/24 22:00 Acetaminophen/ Hydrocodone Bitart 1 tab Q4HP PRN PO 07/21/24 22:00 Ondansetron HCl 4 mg Q4HP PRN IV 07/21/24 22:00 Nitroglycerin 0.4 mg Q5MINP PRN SL 07/21/24 22:00 Morphine Sulfate 2 mg Q30M PRN IV 07/21/24 22:00 Ceftriaxone Sodium 50 ml @ 100 mls/hr DAILY@09 IV 07/22/24 09:00 07/23/24 09:24 100 MLS/HR Sodium Chloride 1,000 ml @ 125 mls/hr Q8H IV 07/22/24 09:45 07/23/24 09:24 125 MLS/HR Ergocalciferol 50,000 unit Q7D PO 07/22/24 09:45 07/22/24 11:11 50,000 UNIT laboratory and microbiology Laboratory Tests 07/23/24 04:46 Test 07/23/24 04:46 Range/Units Serum Glucose 116 H 74-106 mg/dL Microbiology Date/Time Source Procedure Growth Status 07/22/24 11:25 Voided Urine Urine Culture - Preliminary Resulted 07/21/24 15:02 Blood Blood Culture - Preliminary NO GROWTH AFTER 48 HOURS OF INCUBATION. Resulted Problem List/Assessment/Plan Problem List/Assessment/Plan # sepsis likely due to UTI -patient with history of fever, leukocytosis, WBC 11.4 -nitrite 2+, leukocyte esterase 3+, WBC 426, RBC 20 to -preliminary blood culture and urine culture is negative for any growth -continue IV ceftriaxone 1 g IV daily -initial culture revealed no growth -continue IV normal saline 125 mL/hour # UTI -nitrite 2+, leukocyte esterase 3+, WBC 426, RBC 20 to --preliminary blood culture and urine culture is negative for any growth -initial culture revealed no growth -continue ceftriaxone 1 g IV daily -continue IV fluid as prescribed Monitor urine output # STEMI type 2 likely due to sepsis -EKG with a normal limit -troponin I 243> 224> 205 -patient is seen by Cardiology, recommendation reviewed and appreciated -pending echo 2D # acute rhabdomyolysis likely due to fall that happened 2 weeks before at work, no MARLA -CK-MB trending down, 1045> 781> 549 -serum creatinine 0.53, GFR 130 -continue IV normal saline 125 mL/hour -monitor urine output -monitor CMP # vitamin-D deficiency -vitamin-D 17.5 -continue Ergo-cholecalciferol 95450 per week # status post falls complicated by rhabdomyolysis -continue IV fluid as prescribed -monitor urine output - #Diabetes mellitus type 2 -HGB A1c 6.7 -low-carbohydrate diet # history of meningitis in 2011 with complication -no acute episode #post meningitis right-sided hearing does and right-sided weakness -monitor clinically # morbid obesity, BMI 44.9 -patient is counseled about weight reduction, healthy diet, physical activity Goals of care/advance care planning; FULL CODE; discussed with the patient PUD prophylaxis: DVT prophylaxis: Patient ambulating Plan discussed with Dr. Gonzales, nursing staff, patient Total time spent on patient evaluation, chart review, assessment and plan, discussion discussion >20 minutes Plan discussed with: Patient Plan discussed with: Patient, Other (RN) Date of Service: Jul 23, 2024 Billing Provider: KAMRAN GONZALES MD Common Visit Codes: [id number] INP/OBS CARE(HIGH) EVELIA PEÑA RESIDENT Jul 23, 2024 15:46 KAMRAN GONZALES MD Jul 27, 2024 18:27
[2024-07-24 01:00] VITALS: BP 131/87; PULSE 78; RESP 16; TEMP 97.8; O2SAT 92
[2024-07-24 05:00] VITALS: BP 138/77; PULSE 64; RESP 16; TEMP 98.1; O2SAT 91
[2024-07-24 07:28] LABS: Anion Gap 6 (5-15); Carbon Dioxide 29 mmol/L (20-31); Chloride 102 mmol/L (98-107); Potassium 4.1 mmol/L (3.5-5.1); Sodium 137 mmol/L (136-145)
[2024-07-24 07:30] LABS: Calcium 9.3 mg/dL (8.7-10.4)
[2024-07-24 07:34] LABS: BUN/Creatinine Ratio 10.7 (10.0-20.0); Blood Urea Nitrogen 6 mg/dL (9-23); Glucose 109 mg/dL (74-106)
[2024-07-24 07:46] LABS: Basophils # (auto) 0.1 10 ^3/uL (0-0.2); Basophils % (auto) 0.8 % (0.0-2.0); Eosinophils # (auto) 0.6 10 ^3/uL (0-0.8); Eosinophils % (auto) 3.8 % (0.0-7.0); Hematocrit 44.5 % (41.0-53.0); Hemoglobin 13.9 g/dL (13.5-17.5); Lymphocytes # (auto) 3.8 10 ^3/uL (0.4-5.4); Lymphocytes % (auto) 22.7 % (10.0-50.0); Mean Corpuscular Hemoglobin 26.4 pg (28.0-32.0); Mean Corpuscular Hgb Conc. 31.3 g/dL (32.0-36.0); Mean Corpuscular Volume 84.4 fL (80.0-100.0); Monocytes # (auto) 1.6 10 ^3/uL (0-1.3); Monocytes % (auto) 9.4 % (0.0-12.0); Neutrophils # (auto) 10.6 10 ^3/uL (1.6-8.6); Neutrophils % (auto) 63.3 % (37.0-80.0); Nucleated Red Blood Cells % 0.2 %; Platelet Count (auto) 334 10^3/uL (140-450); Red Blood Cells 5.27 10^6/uL (4.5-5.90); Red Cell Distribution Width 15.4 % (11.8-14.3); White Blood Cell 16.7 10^3/uL (4.4-10.8)
[2024-07-24 08:00] VITALS: PULSE 79
[2024-07-24 09:00] VITALS: BP 120/71; PULSE 72; RESP 20; TEMP 98.1; O2SAT 91
[2024-07-24] MEDS ORDERED: CEFP100T6 PO (11:29)
--- NOTE | 2024-07-24 11:37 | DVHDSRES ---
Discharge Summary Date of Admission Resident Creating Document: EVELIA PEÑA RESIDENT Jul 21, 2024 at 21:48 Date of Discharge: Jul 24, 2024 Admitting Diagnosis Acute rhabdomyolysis with UTI Wounds: No wounds present at this time. Labs/Diagnostic Data: Laboratory Results Test 07/24/24 05:44 07/23/24 04:46 07/22/24 04:43 07/21/24 21:12 White Blood Count 16.7 10^3/uL (4.4-10.8) Red Blood Count 5.27 10^6/uL (4.5-5.90) Hemoglobin 13.9 g/dL (13.5-17.5) Hematocrit 44.5 % (41.0-53.0) Mean Corpuscular Volume 84.4 fL (80.0-100.0) Mean Corpuscular Hemoglobin 26.4 pg (28.0-32.0) Mean Corpuscular Hemoglobin Concent 31.3 g/dL (32.0-36.0) Red Cell Distribution Width 15.4 % (11.8-14.3) Platelet Count 334 10^3/uL (140-450) Mean Platelet Volume 9.0 fL (6.9-10.8) Neutrophils (%) (Auto) 63.3 % (37.0-80.0) Lymphocytes (%) (Auto) 22.7 % (10.0-50.0) Monocytes (%) (Auto) 9.4 % (0.0-12.0) Eosinophils (%) (Auto) 3.8 % (0.0-7.0) Basophils (%) (Auto) 0.8 % (0.0-2.0) Neutrophils # (Auto) 10.6 10 ^3/uL (1.6-8.6) Lymphocytes # (Auto) 3.8 10 ^3/uL (0.4-5.4) Monocytes # (Auto) 1.6 10 ^3/uL (0-1.3) Eosinophils # (Auto) 0.6 10 ^3/uL (0-0.8) Basophils # (Auto) 0.1 10 ^3/uL (0-0.2) Nucleated Red Blood Cells 0.2 % Sodium Level 137 mmol/L (136-145) Potassium Level 4.1 mmol/L (3.5-5.1) Chloride Level 102 mmol/L (98-107) Carbon Dioxide Level 29 mmol/L (20-31) Anion Gap 6 (5-15) Blood Urea Nitrogen 6 mg/dL (9-23) Creatinine 0.56 mg/dL (0.700-1.30) Glomerular Filtration Rate Calc 128 mL/min (>90) BUN/Creatinine Ratio 10.7 (10.0-20.0) Serum Glucose 109 mg/dL (74-106) Calcium Level 9.3 mg/dL (8.7-10.4) Creatine Kinase 549 U/L (46-171) Hemoglobin A1c 6.7 % A1C (<5.7) Total Bilirubin 0.3 mg/dL (0.2-1.0) Aspartate Amino Transferase (AST) 59 U/L (13-40) Alanine Aminotransferase (ALT) 57 U/L (7-40) Alkaline Phosphatase 85 U/L (46-116) Total Protein 7.1 g/dL (5.7-8.2) Albumin 3.7 g/dL (3.2-4.8) Vitamin B12 Level 528 pg/mL (211-911) Vitamin D 25-Hydroxy 17.5 ng/mL (30.0-100) Thyroid Stimulating Hormone (TSH) 1.94 uIU/mL (0.55-4.78) Hepatitis A Antibody Total Positive (Negative) Hepatitis B Surface Antigen Negative (Negative) Hepatitis B Surface Antibody Negative (Negative) Hepatitis B Core Total Antibody Negative (Negative) Hepatitis C Antibody Negative (Negative) Troponin I High Sensitivity 205 ng/L (</=54) Test 07/21/24 20:27 07/21/24 15:43 07/21/24 15:02 Urine Color Light-orange (Yellow) Urine Clarity Ex.turbid (Clear) Urine pH 8.0 (5.0-9.0) Urine Specific [place] 1.027 (1.001-1.035) Urine Protein 1+ (Negative) Urine Ketones Negative (Negative) Urine Blood Trace /uL (Negative) Urine Nitrite 2+ (Negative) Urine Bilirubin Negative (Negative) Urine Urobilinogen 2 mg/dL (Negative) Urine Leukocyte Esterase 3+ /uL (Negative) Urine RBC 22 /hpf (0 - 3) Urine WBC 426 /hpf (0 - 3) Urine WBC Clumps Present /hpf (None Seen) Urine Squamous Epithelial Cells None seen /hpf (<5) Urine Triple Phosphate Crystals Few /hpf (None Seen) Urine Bacteria None seen /hpf (None Seen) Urine Mucus Few (None Seen) Urine Glucose Normal mg/dL (Normal) Urine Opiates Screen Neg (NEGATIVE) Urine Fentanyl Screen Neg (NEGATIVE) Urine Barbiturates Screen Neg (NEGATIVE) Urine Phencyclidine Screen Neg (NEGATIVE) Urine Amphetamines Screen Neg (NEGATIVE) Urine Benzodiazepines Screen Neg (NEGATIVE) Urine Cocaine Screen Neg (NEGATIVE) Urine Cannabinoids Screen Neg (NEGATIVE) Influenza Type A Antigen Negative (Negative) Influenza Type B Antigen Negative (Negative) SARS-CoV-2 Antigen (Rapid) Negative (NEGATIVE) Lactic Acid Level 1.5 mmol/L (0.4-2.0) Magnesium Level 2.6 mg/dL (1.6-2.6) C-Reactive Protein High Sensitivity 10.02 mg/dL (<1.0) Other Laboratory Tests 07/24/24 05:44 Brief Hx & Hospital Course: This is a 38 years old male with 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 Upon admission, the patient reported dysuria, urgency, frequency, which started on 07/17/24. Patient also reported fever initially more than 100 F at home and it continued on Friday through the following day. Patient also complained of pain in the neck and shoulder and upper back, sore in nature. Patient also had history of fall at work 2 weeks before where he was laying on the floor for 2 minutes. Patient reported that he had meningitis in 2011. This was complicated by loss of hearing in the right ear and right-sided weakness. Patient denied any sick contact, chest pain, shortness of breath, cough, constipation or diarrhea, acute joint pain or swelling, any change in vision. Initial Lab workup revealed leukocytosis 11.4, elevated creatinine kinase 1045> 781, troponin I 243> 224> 205, transaminitis AST 59, ALT 57, vitamin-D deficiency 70.5, 0.3. Patient's serum creatinine, GFR, TSH within normal limit. patient was negative for influenza type A and B and COVID test. Urinalysis was suggestive of UTI, for which the patient was started on IV ceftriaxone. Initial CXR showed cardiomegaly, [place] performed showing an LVEF of 68%. Blood and urine cultures came back negative. Creatinine kinase levels have been decreasing since admission. Patient was placed on IV fluids at 125 cc/hour. Today, the patient denies dysuria, urgency, abdominal pain, nausea/vomiting or any other complaint. We will discharge the patient home on cefpodoxime 200 mg b.i.d. for five additional days. Patient agrees and understands the plan. ROS Constitutional: Denies weight loss, fever and chills. HEENT: Denies changes in vision and hearing. Respiratory: Denies shortness of breath and cough Cardiovascular: Denies chest discomfort or palpitations GI: Denies abdominal pain, nausea, vomiting and diarrhea. : Denies dysuria and urinary frequency. Musculoskeletal: Denies myalgias and joint pain Skin: Denies rash and pruritus. Neurological: Denies dizziness, headache, vision or hearing problems Physical Examination General: Patient alert and oriented in person, place and time. Patient following commands. HEENT: Normocephalic, atraumatic, moist mucous membranes Respiratory/pulmonary: Clear lungs bilaterally, no associated crackles or wheezes. Cardiovascular: Normal regular heart sounds S1 and S2 with no associated murmurs Abdomen: Abdomen nondistended, there is no pain to palpation in any of the abdominal quadrants, no palpable masses. Extremities: There is no peripheral edema present at the lower extremities. Peripheral Pulses: 3+ Radial (R). 3+ Radial (L). 3+ Dorsalis pedis (R). 3+ Dorsalis pedis(L) Skin: No rashes or pruritus, there is no sacral edema present at this time. Neurological: Intact cranial nerves with no focal neurologic deficits Consults/Reason for consult N/A Operations or Procedures XY CHEST PORTABLE, HISTORY: malaise chills A[facility] COMPARISON: None None TECHNICAL DATA: 1 view of the chest was obtained. FINDINGS: Lines and tubes: None Cardiomediastinal silhouette: normal Pulmonary vasculature: normal Lung expansion: normal Lung airspace: normal Lung interstitium: normal Pleura: normal Pneumothorax: no Bones: Unremarkable Other: no IMPRESSION: No acute intrathoracic abnormality. Condition at Discharge: Stable Final Diagnosis/Problems List sepsis likely due to UTI UTI STEMI type 2 likely due to sepsis acute rhabdomyolysis likely due to fall that happened 2 weeks before at work, no MARLA vitamin-D deficiency status post falls complicated by rhabdomyolysis Diabetes mellitus type 2 history of meningitis in 2012 with complication Discharge Disposition: Home Discharge Instruct/Medications Diet: Regular Activity: No Restrictions, As Tolerated Follow Up/Referral: F/U with his PCP on 1 week Medications: Cefpodoxime 100mg BID po for 5 days Discharge Statement: "Patient was advised to return to the ER or call 911 if any headaches, dizziness, shortness of breath, chest pain, abdominal pain, bleeding, fevers, or worsening of medical condition. Patient was counseled about treatment plan, medications, possible side effects, patientverbalized understanding. All questions were answered to the best of my ability. This discharge took greater then 30 minutes in planning, reviewing documentation, counseling the patient, and discussing with other team members." ASSESSMENT ASSESSMENT Assessment sepsis likely due to UTI UTI STEMI type 2 likely due to sepsis acute rhabdomyolysis likely due to fall that happened 2 weeks before at work, no MARLA vitamin-D deficiency status post falls complicated by rhabdomyolysis Diabetes mellitus type 2 history of meningitis in 2012 with complication Date of Service: Jul 24, 2024 Billing Provider: KAMRAN LANDEROS MD Common Visit Codes: 12302-PKJ/OBS DISCH DAY >30min CHRIS DE LA PAZ RESIDENT Jul 24, 2024 11:37 KAMRAN LANDEROS MD Jul 27, 2024 18:28
[2024-07-24 12:34] VITALS: BP 120/71; PULSE 72; RESP 20; TEMP 36.7; O2SAT 93
== END 2024-07-24 13:05 | disposition home or self-care (01) | DRG 871 ==
LOC: EDBD 14:35 → ER 14:35 → OVERFLOW 21:48 → WEST WING 07-22 02:53 → TELE-WESTW 07-22 05:50
PROVIDERS: ADMIT Internal Medicine; ATTEND Internal Medicine
DX: A41.9 Sepsis, unspecified organism (principal); I21.A1 Myocardial infarction type 2; M62.82 Rhabdomyolysis; N30.00 Acute cystitis without hematuria; Z68.41 Body mass index [BMI] 40.0-44.9, adult; E11.9 Type 2 diabetes mellitus without complications; Z20.822 Contact with and (suspected) exposure to COVID-19; E66.01 Morbid (severe) obesity due to excess calories; E55.9 Vitamin D deficiency, unspecified; Z79.4 Long term (current) use of insulin; Z86.61 Personal history of infections of the central nervous system; Z82.49 Family history of ischemic heart disease and other diseases of the circulatory system; Z83.3 Family history of diabetes mellitus; Z79.899 Other long term (current) drug therapy
CPT/HCPCS: 36415; 71045; 80048; 80053; 80307; 81001; 82306; 82550; 82607; 83036; 83605; 83735; 84443; 84484; 85025; 86141; 86704; 86706; 86708; 86803; 87040; 87086; 87340; 87426; 87804; 93306; 96365; 99291; G0378